=== PATIENT | male | born 1945 | race Caucasian/White ===

== ENCOUNTER → 2017-09-03 | Outpatient (CLI) | payer OTHER, BC ==
[~2017-09-03] MED LIST: BYS5 PO; HMLI SC; HYDC25 PO; INSDGIPEN SC; LISI40TA PO
--- NOTE | 2017-09-03 11:44 | DIAGNOSTIC IMAGING REPORT ---
C-SPINE ROUTINE 4 OR 5 VIEWS HISTORY: Pain. Neuropathy. E11.618 Diabetic [id number] Swelling of handM62.541 COMPARISON: None. FINDINGS: The cervical spine is visualized from C1 through the superior endplate of T1. There is no fracture. Considerable degenerative disc change from C5 through T1. Moderate degenerative change posterior elements. Moderate osteophytic narrowing of the neuroforamina bilaterally from C5 through T1. Prevertebral soft tissues and the atlantodens interval are intact. IMPRESSION: Degenerative change primarily the mid to lower cervical region. No acute process. The above report was generated using voice recognition software. It may contain grammatical, syntax or spelling errors. Electronically signed by: Hieu Mariscal M.D. 09/03/2017 11:42 AM Dictated Date/Time: 09/03/2017 11:42 AM
== END | disposition home or self-care (01) ==
LOC: C.RAD1850 11:01
PROVIDERS: ATTEND Internal Medicine Rheumatology
DX: E11.618 Type 2 diabetes mellitus with other diabetic arthropathy (principal); M62.541 Muscle wasting and atrophy, not elsewhere classified, right hand; M62.542 Muscle wasting and atrophy, not elsewhere classified, left hand; M79.89 Other specified soft tissue disorders; M89.8X8 Other specified disorders of bone, other site

== ENCOUNTER → 2017-09-12 | Outpatient (CLI) | payer OTHER, BC | END | disposition home or self-care (01) | LOC: C.LABPBG 10:17 | PROVIDERS: ATTEND Internal Medicine Rheumatology | DX: E11.618 Type 2 diabetes mellitus with other diabetic arthropathy (principal); M79.89 Other specified soft tissue disorders; M62.541 Muscle wasting and atrophy, not elsewhere classified, right hand ==

== ENCOUNTER → 2017-10-17 | Outpatient (CLI) | payer BC, OTHER | END | disposition home or self-care (01) | LOC: C.LABPBG 11:17 | PROVIDERS: ATTEND Internal Medicine Rheumatology | DX: E11.618 Type 2 diabetes mellitus with other diabetic arthropathy (principal); M35.3 Polymyalgia rheumatica; Z79.52 Long term (current) use of systemic steroids ==

== ENCOUNTER → 2017-12-04 | Outpatient (CLI) | payer BC, OTHER | END | disposition home or self-care (01) | LOC: C.LABPBG 09:25 | PROVIDERS: ATTEND Internal Medicine Rheumatology | DX: M79.89 Other specified soft tissue disorders (principal); M35.3 Polymyalgia rheumatica; Z79.52 Long term (current) use of systemic steroids ==

== ENCOUNTER → 2018-01-16 | Outpatient (CLI) | payer BC, OTHER | END | disposition home or self-care (01) | LOC: C.LABPBG 10:00 | PROVIDERS: ATTEND Internal Medicine Rheumatology | DX: E11.618 Type 2 diabetes mellitus with other diabetic arthropathy (principal); M79.89 Other specified soft tissue disorders; M35.3 Polymyalgia rheumatica; Z79.52 Long term (current) use of systemic steroids ==

== ENCOUNTER → 2018-02-13 | Outpatient (CLI) | payer BC, OTHER | END | disposition home or self-care (01) | LOC: C.LABPBG 08:10 | PROVIDERS: ATTEND Urology | DX: R97.20 Elevated prostate specific antigen [PSA] (principal) ==

== ENCOUNTER → 2018-05-07 | Outpatient (CLI) | payer BC | END | disposition home or self-care (01) | LOC: C.LABPBG 10:13 | PROVIDERS: ATTEND Internal Medicine Rheumatology | DX: M46.1 Sacroiliitis, not elsewhere classified (principal); R97.20 Elevated prostate specific antigen [PSA]; E11.618 Type 2 diabetes mellitus with other diabetic arthropathy; M35.3 Polymyalgia rheumatica; Z79.52 Long term (current) use of systemic steroids ==